=== PATIENT | female | born 1955 | race African-American/Black ===

== ENCOUNTER 2017-04-16 16:50 | Inpatient (IN) | payer MEDICARE, MEDICAID ==
[~2017-04-16] VITALS: Ht 167.6 cm; Wt 63.5 kg
[2017-04-16] MEDS ORDERED: HYDROCODONE/APAP 7.5/325MG 1 TAB TABLET PO ONE (20:30)
[2017-04-17 01:14] LABS: BASOPHILS % 1.5 % (0.0-2.0); CHLORIDE 101 mEq/L (98-107); EOSINOPHILS % 1.1 % (0.0-5.0); HEMATOCRIT. 32.3 % (36.0-48.0); HEMOGLOBIN. 11.1 g/dL (12.0-16.0); MEAN CORPUSCULAR HEMOGLOBIN 29.7 pg (28.0-32.0); MEAN CORPUSCULAR VOLUME 86.4 fL (81.0-99.0); MEAN PLATELET VOLUME 7.6 fl (7.4-10.4); MONOCYTES % 12.4 % (2.0-8.0); PLATELET 237 x1000/uL (130-400); RED BLOOD CELL COUNT 3.74 mill/uL (4.2-5.4); RED CELL DISTRIBUTION WIDTH 18.8 % (11.6-14.6)
[2017-04-17 01:16] LABS: PROTHROMBIN TIME 10.7 sec
[2017-04-17 01:22] LABS: CARBON DIOXIDE 29 mEq/L (21-32)
[2017-04-17] MEDS ORDERED: MORPHINE SULFATE 4 MG/ML CPJ (NOT FOR IM USE) IV ONE (03:00)
[2017-04-17 06:00] VITALS: BP 150/82
[2017-04-17 08:00] VITALS: BP 136/83
[2017-04-17] MEDS ORDERED: ONDANSETRON HCL 4MG/2ML VIAL IV PRN (09:30)
[2017-04-17] MEDS ORDERED: ACETAMINOPHEN 325MG TABLET PO PRN (09:30)
[2017-04-17] MEDS ORDERED: POTASSIUM CHLORIDE 20MEQ TABLET SR PO NR (09:30)
[2017-04-17] MEDS ORDERED: DOCUSATE SODIUM 100MG CAPSULE PO PRN (09:30)
[2017-04-17] MEDS: ENOXAPARIN 40MG/0.4ML SYR SUBCUT SCH (10:30)
[2017-04-17] MEDS: HYDROCODONE/ACETAMINOPHEN 5/325MG TABLET PO PRN ×3 (11:07→20:19)
[2017-04-17] MEDS ORDERED: TOPI-60 PO (11:12)
[2017-04-17] MEDS ORDERED: FOLI-43 PO (11:12)
[2017-04-17] MEDS ORDERED: AMLO10TA80 PO (11:12)
[2017-04-17] MEDS ORDERED: ALBU18HF2 IH (11:12)
[2017-04-17] MEDS ORDERED: NAPR-679 PO (11:12)
[2017-04-17 12:00] VITALS: BP 135/79
[2017-04-17 12:36] LABS: *AMPHETAMINES SCREEN URINE NEGATIVE (NEGATIVE); *BARBITURATES SCREEN URINE NEGATIVE (NEGATIVE); *BENZODIAZEPINES SCREEN URINE NEGATIVE (NEGATIVE); *COCAINE SCREEN URINE NEGATIVE (NEGATIVE); CANNABINOID URINE SCREEN NEGATIVE (NEGATIVE); METHADONE URINE SCREEN NEGATIVE (NEGATIVE); OPIATES URINE SCREEN PRESUMTIVE POSITIVE (NEGATIVE); PHENCYCLIDINE URINE SCREEN NEGATIVE (NEGATIVE)
[2017-04-17 16:00] VITALS: BP 134/73
[2017-04-17 20:00] VITALS: BP 138/85
[2017-04-17] MEDS: TOPIRAMATE 25MG TABLET PO SCH (20:17)
[2017-04-17] MEDS: NAPROXEN 375MG TABLET PO SCH (22:05)
[2017-04-18] VITALS: BP 135/78
[2017-04-18] MEDS: HYDROCODONE/ACETAMINOPHEN 5/325MG TABLET PO PRN ×5 (01:32→21:10)
[2017-04-18 04:00] VITALS: BP 133/84
[2017-04-18 06:58] LABS: HEMATOCRIT. 29.2 % (36.0-48.0); HEMOGLOBIN. 9.7 g/dL (12.0-16.0); MEAN CORPUSCULAR HEMOGLOBIN 29.1 pg (28.0-32.0); MEAN CORPUSCULAR VOLUME 87.1 fL (81.0-99.0); MEAN PLATELET VOLUME 7.7 fl (7.4-10.4); PLATELET 222 x1000/uL (130-400); RED BLOOD CELL COUNT 3.35 mill/uL (4.2-5.4); RED CELL DISTRIBUTION WIDTH 18.9 % (11.6-14.6)
[2017-04-18 07:25] LABS: CARBON DIOXIDE 26 mEq/L (21-32); CHLORIDE 99 mEq/L (98-107)
[2017-04-18 08:00] VITALS: BP 131/61
[2017-04-18] MEDS: NAPROXEN 375MG TABLET PO SCH ×2 (08:38→21:09)
[2017-04-18] MEDS: TOPIRAMATE 25MG TABLET PO SCH ×2 (08:38→21:09)
[2017-04-18] MEDS: FOLIC ACID 1MG TABLET PO SCH (08:38)
[2017-04-18] MEDS: AMLODIPINE 10MG TABLET PO SCH (08:39)
[2017-04-18] MEDS: ENOXAPARIN 40MG/0.4ML SYR SUBCUT SCH (08:39)
[2017-04-18 11:47] LABS: PLATELET ESTIMATE NORMAL
[2017-04-18 12:00] VITALS: BP 122/69
[2017-04-18] MEDS ORDERED: POTASSIUM CHLORIDE 20MEQ TABLET SR PO NR (12:30)
[2017-04-18 16:00] VITALS: BP 143/57
[2017-04-18 20:00] VITALS: BP 127/71
[2017-04-19] VITALS: BP 130/75
[2017-04-19 04:00] VITALS: BP 132/75
[2017-04-19 06:12] LABS: HEMATOCRIT. 28.6 % (36.0-48.0); HEMOGLOBIN. 9.5 g/dL (12.0-16.0); MEAN CORPUSCULAR HEMOGLOBIN 29.4 pg (28.0-32.0); MEAN CORPUSCULAR VOLUME 88.5 fL (81.0-99.0); MEAN PLATELET VOLUME 7.6 fl (7.4-10.4); PLATELET 217 x1000/uL (130-400); RED BLOOD CELL COUNT 3.23 mill/uL (4.2-5.4); RED CELL DISTRIBUTION WIDTH 18.7 % (11.6-14.6)
[2017-04-19 06:45] LABS: CARBON DIOXIDE 28 mEq/L (21-32); CHLORIDE 100 mEq/L (98-107)
[2017-04-19 08:00] VITALS: BP 119/61
[2017-04-19] MEDS: NAPROXEN 375MG TABLET PO SCH ×2 (08:26→21:00)
[2017-04-19] MEDS: FOLIC ACID 1MG TABLET PO SCH (08:26)
[2017-04-19] MEDS: TOPIRAMATE 25MG TABLET PO SCH ×2 (08:27→21:00)
[2017-04-19] MEDS: ENOXAPARIN 40MG/0.4ML SYR SUBCUT SCH (08:28)
[2017-04-19] MEDS: AMLODIPINE 10MG TABLET PO SCH (08:53)
[2017-04-19] MEDS: MORPHINE SULFATE 4 MG/ML CPJ (NOT FOR IM USE) IV PRN (09:23)
[2017-04-19 12:00] VITALS: BP 128/64
[2017-04-19 13:06] LABS: PLATELET ESTIMATE NORMAL
[2017-04-19] MEDS ORDERED: VANCOMYCIN HCL 500 MG/VIAL ONE (16:52)
[2017-04-19] MEDS ORDERED: LIDOCAINE HCL 1% 20ML VIAL (Pyxis) INJ ONE (17:30)
[2017-04-19] MEDS ORDERED: PROPOFOL 200MG/20ML VIAL IV ONE (17:30)
[2017-04-19] MEDS ORDERED: ROCURONIUM BROMIDE 10MG/ML VIAL 5ML IV ONE (17:32)
[2017-04-19] MEDS ORDERED: FENTANYL CITRATE/PF 50MCG/ML 2ML VIAL ONE (17:35)
[2017-04-19] MEDS ORDERED: MIDAZOLAM HCL 2 MG/2 ML VIAL ONE (17:35)
[2017-04-19] MEDS ORDERED: SODIUM CHLORIDE 0.9% 10ML VIAL ONE (17:47)
[2017-04-19] MEDS ORDERED: CEFAZOLIN SODIUM 1000MG/VIAL ONE (17:47)
[2017-04-19] MEDS ORDERED: METOCLOPRAMIDE HCL 10MG/2ML VIAL ONE (18:04)
[2017-04-19] MEDS ORDERED: ONDANSETRON HCL 4MG/2ML VIAL ONE (18:04)
[2017-04-19] MEDS ORDERED: GLYCOPYRROLATE 0.2 MG/ML 2ML VIAL ONE (18:16)
[2017-04-19] MEDS ORDERED: NEOSTIGMINE METHYLSULFATE 1MG/ML 10 ML VIAL ONE (18:16)
[2017-04-19] MEDS ORDERED: BACITRACIN ZINC 15GM TUBE TOP ONE (18:21)
[2017-04-19] MEDS ORDERED: HYDROMORPHONE HCL/PF 2MG/ML CPJ IV PRN (18:30)
[2017-04-19] MEDS ORDERED: ONDANSETRON HCL 4MG/2ML VIAL IV PRN (18:30)
[2017-04-19] MEDS ORDERED: HYDROCODONE/ACETAMINOPHEN 5/325MG TABLET PO PRN (18:30)
[2017-04-19] MEDS ORDERED: LABETALOL HCL 5MG/ML VIAL 20ML IV ONE (18:31)
[2017-04-19] MEDS ORDERED: MORPHINE SULFATE 2 MG/ML CPJ (NOT FOR IM USE) IV PRN (18:45)
[2017-04-19] MEDS ORDERED: HYDRALAZINE 20MG/ML VIAL IV NR (18:45)
[2017-04-19] MEDS ORDERED: PHENYTOIN SODIUM 100MG/2ML VIAL IV NR (19:30)
[2017-04-19 23:00] VITALS: BP 119/60
[2017-04-20] VITALS: BP 128/65
[2017-04-20] MEDS ORDERED: CEFAZOLIN 1000MG PREMIX 50 ML IV SCH ×2 (01:00→03:00)
[2017-04-20 04:00] VITALS: BP 127/81
[2017-04-20 08:00] VITALS: BP 130/75
[2017-04-20] MEDS: ENOXAPARIN 40MG/0.4ML SYR SUBCUT SCH (09:15)
[2017-04-20] MEDS: MORPHINE SULFATE 4 MG/ML CPJ (NOT FOR IM USE) IV PRN ×2 (09:16→17:36)
[2017-04-20] MEDS: TOPIRAMATE 25MG TABLET PO SCH ×2 (09:16→22:56)
[2017-04-20] MEDS: AMLODIPINE 10MG TABLET PO SCH (09:16)
[2017-04-20] MEDS: NAPROXEN 375MG TABLET PO SCH ×2 (09:16→22:56)
[2017-04-20] MEDS: FOLIC ACID 1MG TABLET PO SCH (09:16)
[2017-04-20 12:00] VITALS: BP 128/63
[2017-04-20] MEDS: LEVOFLOXACIN 500MG PREMIX 100 ML IV SCH (12:47)
[2017-04-20 16:00] VITALS: BP 101/66
[2017-04-20 20:00] VITALS: BP 134/65
[2017-04-21] VITALS: BP 132/73
[2017-04-21 04:00] VITALS: BP 122/79
[2017-04-21] MEDS: MORPHINE SULFATE 4 MG/ML CPJ (NOT FOR IM USE) IV PRN ×2 (05:53→12:25)
[2017-04-21 06:34] LABS: HEMATOCRIT. 25.6 % (36.0-48.0); HEMOGLOBIN. 8.6 g/dL (12.0-16.0); MEAN CORPUSCULAR HEMOGLOBIN 29.3 pg (28.0-32.0); MEAN CORPUSCULAR VOLUME 86.7 fL (81.0-99.0); MEAN PLATELET VOLUME 7.3 fl (7.4-10.4); PLATELET 240 x1000/uL (130-400); RED BLOOD CELL COUNT 2.95 mill/uL (4.2-5.4); RED CELL DISTRIBUTION WIDTH 17.7 % (11.6-14.6)
[2017-04-21 07:47] LABS: CHLORIDE 102 mEq/L (98-107)
[2017-04-21 08:00] VITALS: BP 130/60
[2017-04-21 08:06] LABS: CARBON DIOXIDE 23 mEq/L (21-32)
[2017-04-21] MEDS: TOPIRAMATE 25MG TABLET PO SCH ×2 (08:17→20:33)
[2017-04-21] MEDS: AMLODIPINE 10MG TABLET PO SCH (08:17)
[2017-04-21] MEDS: ENOXAPARIN 40MG/0.4ML SYR SUBCUT SCH (08:17)
[2017-04-21] MEDS: FOLIC ACID 1MG TABLET PO SCH (08:17)
[2017-04-21] MEDS: NAPROXEN 375MG TABLET PO SCH ×2 (08:17→20:34)
[2017-04-21 10:18] LABS: PLATELET ESTIMATE NORMAL
[2017-04-21 12:00] VITALS: BP 99/52
[2017-04-21] MEDS: LEVOFLOXACIN 500MG PREMIX 100 ML IV SCH (12:16)
[2017-04-21 16:00] VITALS: BP 119/63
[2017-04-21] MEDS ORDERED: POTASSIUM CHLORIDE 20MEQ TABLET SR PO NR (19:30)
[2017-04-21 20:00] VITALS: BP 128/66
[2017-04-22] VITALS: BP 112/65
[2017-04-22] MEDS: HYDROCODONE/ACETAMINOPHEN 10/325MG TABLET PO PRN ×3 (01:09→16:13)
[2017-04-22 04:00] VITALS: BP 110/63
[2017-04-22 08:00] VITALS: BP 116/59
[2017-04-22] MEDS: AMLODIPINE 10MG TABLET PO SCH (08:58)
[2017-04-22] MEDS: TOPIRAMATE 25MG TABLET PO SCH (09:01)
[2017-04-22] MEDS: NAPROXEN 375MG TABLET PO SCH (09:01)
[2017-04-22] MEDS: FOLIC ACID 1MG TABLET PO SCH (09:01)
[2017-04-22] MEDS: ENOXAPARIN 40MG/0.4ML SYR SUBCUT SCH (09:01)
[2017-04-22] MEDS: LEVOFLOXACIN 500MG PREMIX 100 ML IV SCH (11:24)
[2017-04-22 12:00] VITALS: BP 113/52
[2017-04-22 12:43] VITALS: BP_SYST 113; BP_SYST 116; BP_DIAS 52; BP_DIAS 59
[2017-04-22 16:13] VITALS: BP 113/52
[2017-04-22] MEDS ORDERED: TOPIRAMATE 25MG TABLET PO SCH (17:00)
[2017-04-23] MEDS ORDERED: LEVOFLOXACIN 500MG TABLET PO SCH (11:00)
== END 2017-04-22 17:15 | disposition home health service (06) | DRG 493 ==
LOC: ER 17:03 → 6EST 04-17 02:32 → EDBEDREQ 04-17 02:57 → ENRESERV 04-17 04:05
PROVIDERS: ADMIT Hospitalist; ATTEND Hospitalist
PROC: 0QSJXZZ Reposition Right Fibula, External Approach (ICD-10-PCS; 2017-04-19)
PROC: 0QSG06Z Reposition Right Tibia with Intramedullary Internal Fixation Device, Open Approach (ICD-10-PCS; principal; 2017-04-19 16:00)
DX: S82.141A Displaced bicondylar fracture of right tibia, initial encounter for closed fracture (principal); N39.0 Urinary tract infection, site not specified; E44.0 Moderate protein-calorie malnutrition; S82.831A Other fracture of upper and lower end of right fibula, initial encounter for closed fracture; E87.6 Hypokalemia; J42 Unspecified chronic bronchitis; G40.909 Epilepsy, unspecified, not intractable, without status epilepticus; D64.9 Anemia, unspecified; I10 Essential (primary) hypertension; Z79.899 Other long term (current) drug therapy; Z68.22 Body mass index [BMI] 22.0-22.9, adult; W01.0XXA Fall on same level from slipping, tripping and stumbling without subsequent striking against object, initial encounter; Y93.01 Activity, walking, marching and hiking; Y92.89 Other specified places as the place of occurrence of the external cause; Y99.8 Other external cause status
CPT/HCPCS: 36415; 71010; 73590; 73700; 80053; 80305; 83735; 85025; 85610; 87040; 87077; 87086; 87186; 93005; 96374; 97110; 97116; 97162; 97166; 97530; 99285; A4216; C1713; G0482; J0360; J0690; J1165; J1650; J1956; J2250; J2270; J2405; J2704; J2710; J2765; J3010; J3370; J3490; J7040; J7120

== ENCOUNTER 2017-05-18 12:00 | Emergency (ER) | payer MEDICARE, MEDICAID ==
[~2017-05-18] VITALS: Ht 167.6 cm; Wt 63.0 kg
[~2017-05-18 12:00] MED LIST: ALBU18HF2 IH; AMLO10TA80 PO; FOLI-43 PO; NAPR-679 PO; TOPI-60 PO
[2017-05-18 12:05] VITALS: BP 142/81
== END 2017-05-18 13:24 | disposition home or self-care (01) ==
LOC: ER 13:12
DX: Z48.02 Encounter for removal of sutures (principal); F17.210 Nicotine dependence, cigarettes, uncomplicated; I10 Essential (primary) hypertension; R56.9 Unspecified convulsions; Z96.659 Presence of unspecified artificial knee joint
CPT/HCPCS: 99281

== ENCOUNTER 2018-01-23 22:48 | Emergency (ER) | payer MEDICARE, MEDICAID ==
[~2018-01-23] VITALS: Ht 167.6 cm; Wt 63.0 kg
[~2018-01-23 22:48] MED LIST changes: -TOPI-60 PO; +TOPI25TA48 PO
[2018-01-24] MEDS ORDERED: ACETAMINOPHEN 325MG TABLET PO ONE (05:45)
[2018-01-24 07:00] VITALS: BP 134/84
== END 2018-01-24 07:00 | disposition home or self-care (01) ==
LOC: ER 22:48
DX: T51.0X1A Toxic effect of ethanol, accidental (unintentional), initial encounter (principal); G92 Toxic encephalopathy; M79.601 Pain in right arm; I10 Essential (primary) hypertension; G40.909 Epilepsy, unspecified, not intractable, without status epilepticus; F17.200 Nicotine dependence, unspecified, uncomplicated; Y90.8 Blood alcohol level of 240 mg/100 ml or more; M85.80 Other specified disorders of bone density and structure, unspecified site; W19.XXXA Unspecified fall, initial encounter; Y92.018 Other place in single-family (private) house as the place of occurrence of the external cause
CPT/HCPCS: 36415; 73030; 73060; 99285; G0482

== ENCOUNTER 2018-03-26 18:37 | Emergency (ER) | payer MEDICARE, MEDICAID ==
[~2018-03-26] VITALS: Ht 167.6 cm; Wt 70.0 kg
[2018-03-26] MEDS ORDERED: SODIUM CHLORIDE 0.9% 1,000 ML IV ONE ×2 (19:05→20:40)
[2018-03-26 19:44] LABS: HEMATOCRIT. 36.8 % (36.0-48.0); HEMOGLOBIN. 12.6 g/dL (12.0-16.0); MEAN CORPUSCULAR HEMOGLOBIN 29.7 pg (28.0-32.0); MEAN CORPUSCULAR VOLUME 86.9 fL (81.0-99.0); PLATELET 155 x1000/uL (130-400); RED BLOOD CELL COUNT 4.24 mill/uL (4.2-5.4); RED CELL DISTRIBUTION WIDTH 17.3 % (11.6-14.6)
[2018-03-26 19:49] LABS: CHLORIDE 100 mEq/L (98-107)
[2018-03-26 20:06] LABS: ETHANOL BLOOD 403 mg/dL
[2018-03-26 20:47] LABS: PLATELET ESTIMATE NORMAL
[2018-03-26] MEDS ORDERED: TETANUS, DIPHTHERIA, PERTUSSIS VAC/PF 0.5ML (>7YR OLD) IM ONE (21:00)
[2018-03-26 21:22] VITALS: BP 150/80
== END 2018-03-26 21:45 | disposition left against medical advice (07) ==
LOC: ER 21:41
DX: F10.129 Alcohol abuse with intoxication, unspecified (principal); Y90.8 Blood alcohol level of 240 mg/100 ml or more; I10 Essential (primary) hypertension; R56.9 Unspecified convulsions; F17.200 Nicotine dependence, unspecified, uncomplicated; W18.30XA Fall on same level, unspecified, initial encounter; Y93.89 Activity, other specified; Y92.9 Unspecified place or not applicable
CPT/HCPCS: 36415; 70450; 72125; 80048; 85007; 85027; 90471; 90715; 99285; G0482; J7030

== ENCOUNTER 2022-01-05 15:10 | Emergency (ER) | payer OTHER, MEDICAID ==
[~2022-01-05] VITALS: Ht 167.6 cm; Wt 68.5 kg
[2022-01-05 16:41] LABS: EOSINOPHILS % 0.1 % (0.0-5.0); HEMATOCRIT. 38.4 % (36.0-48.0); HEMOGLOBIN. 12.8 g/dL (12.0-16.0); LYMPHOCYTES % 40.9 % (20.0-50.0); MEAN CORPUSCULAR HEMOGLOBIN 29.5 pg (28.0-32.0); MEAN CORPUSCULAR VOLUME 88.3 fL (81.0-99.0); MEAN PLATELET VOLUME 7.9 fl (7.4-10.4); MONOCYTES % 8.3 % (2.0-8.0); NEUTROPHILS % 49.7 % (40.0-76.0); PLATELET 234 x1000/uL (130-400); RED BLOOD CELL COUNT 4.35 mill/uL (4.2-5.4); RED CELL DISTRIBUTION WIDTH 15.3 % (11.6-14.6)
[2022-01-05 16:45] LABS: CHLORIDE 109 mEq/L (98-107)
[2022-01-05 17:30] VITALS: BP 172/75
== END 2022-01-05 20:42 | disposition home or self-care (01) ==
LOC: ER 15:10
DX: R07.89 Other chest pain (principal); I10 Essential (primary) hypertension; G40.909 Epilepsy, unspecified, not intractable, without status epilepticus; R01.1 Cardiac murmur, unspecified
CPT/HCPCS: 36415; 71045; 80053; 83880; 84484; 85025; 93005; 99285

== ENCOUNTER 2022-03-25 10:04 | Emergency (ER) | payer OTHER, MEDICAID ==
[~2022-03-25] VITALS: Ht 172.7 cm; Wt 66.0 kg
[2022-03-25] MEDS ORDERED: MAGNESIUM/ALUMINUM HYDROXIDE/SIMETHICONE 30ML UDC PO SCH (11:00)
[2022-03-25] MEDS ORDERED: ACETAMINOPHEN 325MG TABLET PO SCH (11:00)
[2022-03-25 11:06] LABS: BASOPHILS % 0.6 % (0.0-2.0); EOSINOPHILS % 0.2 % (0.0-5.0); HEMATOCRIT. 36.9 % (36.0-48.0); HEMOGLOBIN. 12.2 g/dL (12.0-16.0); LYMPHOCYTES % 22.2 % (20.0-50.0); MEAN CORPUSCULAR HEMOGLOBIN 28.9 pg (28.0-32.0); MEAN CORPUSCULAR VOLUME 87.1 fL (81.0-99.0); MEAN PLATELET VOLUME 7.9 fl (7.4-10.4); PLATELET 217 x1000/uL (130-400); RED BLOOD CELL COUNT 4.24 mill/uL (4.2-5.4)
[2022-03-25 11:17] LABS: CHLORIDE 107 mEq/L (98-107)
[2022-03-25 11:28] LABS: PHENOBARBITAL < 2.1 ug/mL (15.0-40.0)
[2022-03-25 13:43] LABS: CLARITY URINE CLEAR (CLEAR); COLOR URINE YELLOW (YELLOW); KETONES URINE 2+ (NEGATIVE); LEUKOCYTE ESTERASE URINE 2+ (NEGATIVE); NITRITE URINE POSITIVE (NEGATIVE); OCCULT BLOOD URINE 2+ (NEGATIVE); PH URINE 5.5 (4.5-8.0); PROTEIN URINE TRACE (NEGATIVE)
[2022-03-25] MEDS ORDERED: FOLIC ACID 1 MG, THIAMINE HCL 100 MG, MVI, ADULT NO.1 10 ML in DEXTROSE 5% WATER 1,000 ML IV ONE ×4 (13:45)
[2022-03-25] MEDS ORDERED: CEFTRIAXONE 1 G PREMIX 50 ML IV NR (16:00)
[2022-03-25] MEDS ORDERED: AMLODIPINE 5MG TABLET PO ONE (18:00)
[2022-03-25 23:46] VITALS: BP 155/73
== END 2022-03-26 00:41 | disposition short-term general hospital (02) ==
LOC: ER 10:20
DX: R41.81 Age-related cognitive decline (principal); R62.7 Adult failure to thrive; F10.20 Alcohol dependence, uncomplicated; Y90.9 Presence of alcohol in blood, level not specified; N39.0 Urinary tract infection, site not specified; I10 Essential (primary) hypertension; R56.9 Unspecified convulsions; Z20.822 Contact with and (suspected) exposure to COVID-19
CPT/HCPCS: 36415; 70450; 74176; 76830; 76856; 80053; 80184; 80185; 80320; 81003; 82140; 83605; 83690; 85025; 87077; 87086; 87186; 87426; 93005; 96365; 96366; 96368; 99285; C9803; J0696; J3411; J3490; J7070; G0480

== ENCOUNTER 2022-10-08 12:25 | Emergency (ER) | payer MEDICARE, MEDICAID ==
[~2022-10-08] VITALS: Ht 167.6 cm; Wt 64.0 kg
[2022-10-08] MEDS ORDERED: ACETAMINOPHEN WITH CODEINE 300/30MG TABLET PO ONE (13:30)
[2022-10-08 14:13] VITALS: BP 171/72
[2022-10-08] MEDS ORDERED: T3 PO (15:19)
== END 2022-10-08 19:20 | disposition home or self-care (01) ==
LOC: ER 12:25
DX: S70.02XA Contusion of left hip, initial encounter (principal); S30.0XXA Contusion of lower back and pelvis, initial encounter; W01.0XXA Fall on same level from slipping, tripping and stumbling without subsequent striking against object, initial encounter; Y93.9 Activity, unspecified; Y92.9 Unspecified place or not applicable; I10 Essential (primary) hypertension; R56.9 Unspecified convulsions
CPT/HCPCS: 72192; 99284

== ENCOUNTER 2023-01-11 21:27 | Emergency (ER) | payer MEDICARE, MEDICAID ==
[~2023-01-11] VITALS: Ht 167.6 cm; Wt 58.0 kg
[~2023-01-11 21:27] MED LIST changes: +T3 PO
[2023-01-11] MEDS ORDERED: KETOROLAC 60MG/2ML VIAL IM ONE (22:30)
[2023-01-11 23:42] LABS: CLARITY URINE CLEAR (CLEAR); COLOR URINE YELLOW (YELLOW); KETONES URINE NEGATIVE (NEGATIVE); LEUKOCYTE ESTERASE URINE NEGATIVE (NEGATIVE); NITRITE URINE NEGATIVE (NEGATIVE); OCCULT BLOOD URINE TRACE (NEGATIVE); PH URINE 5.5 (4.5-8.0); PROTEIN URINE NEGATIVE (NEGATIVE); SPECIFIC GRAVITY URINE 1.012 (1.005-1.030); UROBILINOGEN URINE 0.2 E.U./dL (0.2-1.0)
[2023-01-12 00:24] LABS: BASOPHILS % 1.5 % (0.0-2.0); EOSINOPHILS % 0.6 % (0.0-5.0); HEMATOCRIT. 32.6 % (36.0-48.0); LYMPHOCYTES % 34.2 % (20.0-50.0); MEAN CORPUSCULAR HEMOGLOBIN 28.3 pg (28.0-32.0); MEAN CORPUSCULAR VOLUME 84.2 fL (81.0-99.0); MEAN PLATELET VOLUME 8.5 fl (7.4-10.4); MONOCYTES % 7.6 % (2.0-8.0); NEUTROPHILS % 56.1 % (40.0-76.0); PLATELET 258 x1000/uL (130-400); RED BLOOD CELL COUNT 3.88 mill/uL (4.2-5.4); RED CELL DISTRIBUTION WIDTH 16.6 % (11.6-14.6)
[2023-01-12 00:27] LABS: CHLORIDE 111 mEq/L (98-107)
[2023-01-12] MEDS ORDERED: POTASSIUM CHLORIDE 20MEQ TABLET SR PO ONE (01:00)
[2023-01-12] MEDS ORDERED: IBUP-2028 MT (01:18)
[2023-01-12 08:10] VITALS: BP 136/70
== END 2023-01-12 11:34 | disposition home or self-care (01) ==
LOC: ER 21:27
DX: R10.11 Right upper quadrant pain (principal); E87.6 Hypokalemia; I10 Essential (primary) hypertension; Z79.899 Other long term (current) drug therapy
CPT/HCPCS: 36415; 71045; 74176; 80053; 81003; 83690; 85025; 93005; 96372; 99285; J1885